=== PATIENT | male | born 1970 ===

== ENCOUNTER → 2019-07-02 | Outpatient (CLI) | payer OTHER ==
[~2019-07-02] MED LIST: CYCL10TA2 PO; FURO-69 PO; OMEP20TA63 PO; TRAM50TA PO; VALA10005 PO; ZOLP10TA PO
--- NOTE | 2019-07-02 12:05 | PAIN ---
DATE OF SERVICE: 07/02/2019 INITIAL CONSULTATION FOR PAIN CLINIC CHIEF COMPLAINT: Low back pain with left lower extremity pain. HISTORY OF PRESENT ILLNESS: This is a 48-year-old male who presents with history of pain in the low back and left lower extremity going for about 9 years or so, worse over the past 2-3 years. The patient reports it is worse with walking, standing, changing positions, pain across the low back, both sides and into the posterior left gluteus, posterolateral thigh, lateral anterior thigh, and medial thigh on the left side only. The patient reports it is constant, throbbing with numbness and tingling in the leg, cramping and aching in description, worse with standing, walking, changing positions also. The patient is wearing a CPAP at night. He was forced to lay on his back flat. He has numbness and tingling in both his legs and wakes up in the morning, which takes about 15-20 minutes to resolve, but does resolve. The patient reports it awakens him from sleep at least once or twice a night, does not affect his bowel or bladder control, does affect his ability to walk, but significant fatigability in both legs, especially on the left side. The patient had plain films of the lumbar spine showing degenerative disk disease, L1-L2, L2-L3, L3-L4 marginal disk osteophyte formation and mild narrowing of disk space at L1-L2. The patient reports a disability rating 0-10, 10 being the worst, is a 7 with family home responsibilities and recreation, 9 with social activity, occupation and sexual behavior, 8 with self-care, 9 with life support activities. The patient reports no loss of motor function, but significant fatigability with ambulation after about 10-15 minutes, must stop to rest and sit down to get the pain to decrease. PAST MEDICAL HISTORY: Significant for COPD, hearing loss, hearing aids, cigarette smoking, quit about 6 months ago, smoked for 30 years prior to that, history of arthritis. Oxygen dependency. PREVIOUS SURGERY: Include anterior cervical fusion as well as posterior cervical fusion, appendectomy, fractured foot ORIF and carpal tunnel repair. CURRENT MEDICATIONS: Include tramadol, Flexeril, Lasix, Prilosec, Ambien and Valtrex. ALLERGIES: The patient has no known drug allergies. FAMILY HISTORY: Significant for cancers, hypertension, and heart disease. SOCIAL HISTORY: The patient does not drink alcohol, does not smoke, quit a while back. Denies any illegal, illicit or recreational drugs. He is , has no children, living at home and is currently incarcerated in custody. REVIEW OF SYSTEMS: The patient's review of systems is positive for those items listed in history of present illness. All systems reviewed and otherwise negative. It is complete, full and well documented on the patient's chart. PHYSICAL EXAMINATION: VITAL SIGNS: The patient's blood pressure 130/91, pulse 74, respirations 18, temperature 97.9 degrees Fahrenheit, height is 67 inches and weight is 235 pounds. GENERAL: The patient is awake, alert, oriented, appropriate, very pleasant demeanor. HEENT: Exam shows normocephalic, atraumatic. Extraocular movements are intact and symmetrical. Oral cavity: Mucous membranes moist and pink. Dentition is intact. NECK: Shows anterior throat supple without palpable lymphadenopathy noted. Swallow reflex symmetrical. CHEST: Shows normal on inspection. Breath sounds clear bilaterally. HEART: Shows S1, S2 clear. No murmurs auscultated. ABDOMEN: Soft, obese, nontender, nondistended. No palpable organomegaly is noted. No rebound or guarding demonstrated. BACK: Shows spine grossly in the midline. Slight exaggeration of thoracic kyphosis and flattening of cervical lordotic curvature with well-healed surgical scarring noted both anteriorly and posteriorly. Lumbar paraspinous muscle shows symmetrical on inspection, on palpation shows some moderate tenderness diffusely throughout the upper, middle and lower distribution of paraspinous muscles, but appears symmetrical, no evidence of atrophy, hypertrophy, and no trigger points. The patient shows good rotational motion of lumbar spine, both laterally as well as extension and flexion without significant difficulty. EXTREMITIES: The patient's lower extremities show deep tendon reflexes at 1+ in the patellar and tendo calcaneus tendons are equal and symmetrical. Peripheral pulses are 1+ posterior tibia. No peripheral edema is noted. Lower extremities are warm and dry to touch, equal in color and appearance. Motor exam is approximately 4 on a scale of 5 with left dorsiflexion, extension, quadriceps and hamstring flexion and 5/5 on the right. Straight leg raise noted to be negative for reproduction of radicular symptoms bilaterally. Gaenslen's and Nestor's maneuvers are negative bilaterally as well. The patient is able to stand, stand on his toes without significant difficulty or loss of balance. SKIN: The patient's skin shows warm and dry, good turgor. No edema. No sores, rashes or bruising throughout. IMPRESSION: 1. This is a 48-year-old male with approximately 9-year history of increasing pain in the low back, worse over the past 1-2 years with radiation to the left lower extremity. 2. Plain films of the lumbar spine as noted. 3. Arthritis. 4. Chronic obstructive pulmonary disease with oxygen dependency. PLAN: Options were discussed with the patient including conservative medical managements, continued physical therapies and interventional techniques. He would like to pursue interventional techniques as he is doing some exercising and physical therapies on his own currently. We discussed a lumbar epidural steroid injection using description as well as anatomical models to describe the procedure. The patient will wait for preauthorization with insurance provider and return once this is obtained. We will plan on lumbar epidural steroid injection at that time. SHMUEL HANCOCK MD DR: [email or web address] JOB#: [id number] / [id number]
== END | disposition home or self-care (01) ==
LOC: EEVIPCON 08:00 → PNCL 08:06
PROVIDERS: ATTEND Anesthesiology
DX: M54.5 Low back pain (principal); M19.90 Unspecified osteoarthritis, unspecified site; J44.9 Chronic obstructive pulmonary disease, unspecified; H91.90 Unspecified hearing loss, unspecified ear; E66.01 Morbid (severe) obesity due to excess calories; Z68.45 Body mass index [BMI] 70 or greater, adult; Z87.891 Personal history of nicotine dependence
CPT/HCPCS: G0463